=== PATIENT | male | born 1985 | race Caucasian/White ===

== ENCOUNTER 2017-03-28 19:09 | Inpatient (IN) ==
[2017-03-28] MEDS ORDERED: PROPOFOL 200 MG/20 ML VIAL IV ONE (20:03)
[2017-03-28 20:18] LABS: Basophils # 0.1 10*3/uL (0.0-0.2); Basophils % 0.4 % (0.0-0.8); Eosinophils # 0.1 10*3/uL (0.0-0.87); Hematocrit 46.3 VOL% (42.0-52.0); Hemoglobin 15.9 GM/DL (14.0-18.0); Immature Granulocytes % 0.4 %; Immature Granulocytes Absolute 0.06 #; Lymphocytes # 2.9 10*3/uL (1.4-4.0); Lymphocytes % 21.3 % (21.2-54.2); Mean Corpuscular HGB Conc 34.3 GM/DL (32-36); Mean Corpuscular Hemoglobin 30 PG (27-34); Mean Corpuscular Volume 86.5 FL (87-102); Mean Platelet Volume 10.9 FL (9.6-12.0); Monocytes # 1.2 10*3/uL (0.11-0.8); Monocytes % 8.5 % (1.7-12.7); Neutrophils # 9.3 10*3/uL (1.4-7.4); Neutrophils % 68.4 % (38.7-73.9); Platelet Count 353 T/CUMM (130-400); Red Blood Count 5.35 MC/CUMM (3.8-5.5); Red Cell Distribution Width 12.6 % (9.3-17.3); White Blood Count 13.5 T/CUMM (4-12)
[2017-03-28] MEDS ORDERED: ONDANSETRON 4 MG/2 ML VIAL ONE (20:32)
[2017-03-28] MEDS ORDERED: HYDROmorphone 2 MG/1 ML VIAL ONE (20:32)
[2017-03-28] MEDS ORDERED: KETOROLAC 30 MG/1 ML VIAL ONE (20:32)
[2017-03-28 20:35] LABS: Albumin 4.6 G/DL (3.4-5.0); Bilirubin,Total 0.4 MG/DL (0.2-1.0); Calcium 9.2 MG/DL (8.5-10.1); Osmolality,Calculated 283.1 MOS/KG (273-304); Potassium 3.4 MMOL/L (3.5-5.1); Total Protein 7.9 G/DL (6.4-8.3)
[2017-03-28 20:47] LABS: PT Patient Result 10.5 SECS; Partial Thromboplastin Time 24.8 SECS (0-40)
[2017-03-28] MEDS ORDERED: ONDANSETRON 4 MG/2 ML VIAL IV STA (21:05)
[2017-03-28] MEDS ORDERED: HYDROmorphone 2 MG/1 ML VIAL IV STA (21:05)
[2017-03-28] MEDS ORDERED: SODIUM CHLORIDE 0.9% 1,000 ML IV STA (21:06)
[2017-03-28] MEDS ORDERED: KETOROLAC 30 MG/1 ML VIAL IV STA (21:06)
[2017-03-28] MEDS ORDERED: ONDANSETRON 4 MG/2 ML VIAL IV PRN (23:48)
[2017-03-28] MEDS ORDERED: PROMETHAZINE 25 MG/1 ML VIAL IM PRN (23:48)
[2017-03-28] MEDS ORDERED: ACETAMINOPHEN 325 MG TABLET PO PRN (23:48)
[2017-03-29] MEDS: HYDROmorphone 2 MG/1 ML VIAL IV PRN ×5 (00:30→23:21)
[2017-03-29] MEDS ORDERED: cloNIDine 0.1 MG TABLET ONE (01:04)
[2017-03-29] MEDS: LACTATED RINGERS 1,000 ML IV SCH ×2 (01:12→11:56)
[2017-03-29] MEDS ORDERED: KETOROLAC 10 MG TABLET ONE (04:05)
[2017-03-29] MEDS: KETOROLAC 10 MG TABLET PO SCH ×4 (04:07→20:04)
[2017-03-29 07:13] LABS: Basophils % 0.2 % (0.0-0.8); Eosinophils # 0.2 10*3/uL (0.0-0.87); Eosinophils % 0.8 % (0.00-10.9); Hematocrit 39.9 VOL% (42.0-52.0); Hemoglobin 14.1 GM/DL (14.0-18.0); Immature Granulocytes % 0.6 %; Immature Granulocytes Absolute 0.12 #; Lymphocytes # 2.5 10*3/uL (1.4-4.0); Lymphocytes % 13.1 % (21.2-54.2); Mean Corpuscular HGB Conc 35.3 GM/DL (32-36); Mean Corpuscular Hemoglobin 31 PG (27-34); Mean Corpuscular Volume 86.4 FL (87-102); Mean Platelet Volume 11.1 FL (9.6-12.0); Monocytes # 1.3 10*3/uL (0.11-0.8); Monocytes % 6.6 % (1.7-12.7); Neutrophils % 78.7 % (38.7-73.9); Platelet Count 259 T/CUMM (130-400); Red Blood Count 4.62 MC/CUMM (3.8-5.5); Red Cell Distribution Width 13.1 % (9.3-17.3)
[2017-03-29] MEDS ORDERED: HYDROmorphone 2 MG/1 ML VIAL ONE (07:46)
[2017-03-29 07:48] LABS: Osmolality,Calculated 284.1 MOS/KG (273-304); Potassium 3.8 MMOL/L (3.5-5.1)
[2017-03-29] MEDS: TAMSULOSIN 0.4 MG CAPSULE PO SCH (11:58)
[2017-03-29] MEDS: PANTOPRAZOLE 40 MG TABLET PO SCH (11:58)
[2017-03-29] MEDS: ENOXAPARIN 40 MG/0.4 ML SYRINGE SUBCUT SCH (16:06)
[2017-03-29] MEDS: POLYETHYLENE GLYCOL POWDER 17 GM PACK PO SCH (20:44)
[2017-03-30] MEDS: KETOROLAC 10 MG TABLET PO SCH ×4 (03:21→20:23)
[2017-03-30 05:40] LABS: Basophils % 0.3 % (0.0-0.8); Eosinophils # 0.4 10*3/uL (0.0-0.87); Eosinophils % 4.5 % (0.00-10.9); Hematocrit 35.8 VOL% (42.0-52.0); Hemoglobin 12.6 GM/DL (14.0-18.0); Immature Granulocytes % 0.4 %; Immature Granulocytes Absolute 0.04 #; Lymphocytes # 2.2 10*3/uL (1.4-4.0); Lymphocytes % 24.4 % (21.2-54.2); Mean Corpuscular HGB Conc 35.2 GM/DL (32-36); Mean Corpuscular Hemoglobin 30 PG (27-34); Mean Corpuscular Volume 85.4 FL (87-102); Mean Platelet Volume 11.1 FL (9.6-12.0); Monocytes # 0.8 10*3/uL (0.11-0.8); Monocytes % 8.4 % (1.7-12.7); Neutrophils # 5.6 10*3/uL (1.4-7.4); Platelet Count 226 T/CUMM (130-400); Red Blood Count 4.19 MC/CUMM (3.8-5.5); Red Cell Distribution Width 12.6 % (9.3-17.3); White Blood Count 9.1 T/CUMM (4-12)
[2017-03-30] MEDS: HYDROmorphone 2 MG/1 ML VIAL IV PRN ×3 (07:29→20:40)
[2017-03-30] MEDS: TAMSULOSIN 0.4 MG CAPSULE PO SCH (09:01)
[2017-03-30] MEDS: PANTOPRAZOLE 40 MG TABLET PO SCH (09:01)
[2017-03-30] MEDS: POLYETHYLENE GLYCOL POWDER 17 GM PACK PO SCH (09:01)
[2017-03-30] MEDS: ENOXAPARIN 40 MG/0.4 ML SYRINGE SUBCUT SCH (15:31)
[2017-03-31] MEDS: HYDROmorphone 2 MG/1 ML VIAL IV PRN ×2 (00:16→07:47)
[2017-03-31] MEDS: KETOROLAC 10 MG TABLET PO SCH ×3 (01:59→13:30)
[2017-03-31] MEDS: POLYETHYLENE GLYCOL POWDER 17 GM PACK PO SCH (09:06)
[2017-03-31] MEDS: TAMSULOSIN 0.4 MG CAPSULE PO SCH (09:06)
[2017-03-31] MEDS: PANTOPRAZOLE 40 MG TABLET PO SCH (09:06)
[2017-03-31 13:08] VITALS: BP 139/95
== END 2017-03-31 16:06 | disposition home or self-care (01) | DRG 201 ==
LOC: ED 19:09 → N.ED 19:09 → N.EDINP 20:35 → N.2E 22:39 → N.ED 23:40 → ED 23:41 → N.ED 23:43 → ED 23:49 → N.ED 03-29 → ED 03-29 00:01 → N.ED 03-29 02:00 → ED 03-29 02:01 → N.2E 03-29 02:15 → ED 03-29 02:56 → N.ED 03-29 03:38 → N.EDINP 03-29 08:55 → N.3E 03-29 09:14
PROVIDERS: ADMIT Surgery; ATTEND Surgery